=== PATIENT | male | born 1995 | race African-American/Black ===

== ENCOUNTER 2018-06-17 09:51 | Emergency (ER) | payer SELFPAY ==
[~2018-06-17] VITALS: Ht 185.4 cm; Wt 69.0 kg
[2018-06-17 18:37] LABS: CHLORIDE 106 mEq/L (98-107)
[2018-06-17 19:15] VITALS: BP 110/68
== END 2018-06-17 19:43 | disposition home or self-care (01) ==
LOC: ER 10:42
DX: K11.5 Sialolithiasis (principal); F12.10 Cannabis abuse, uncomplicated
CPT/HCPCS: 36415; 70490; 80048; 99284; Z7610